=== PATIENT | female | born 1940 | race Caucasian/White ===

== ENCOUNTER 2016-12-31 08:38 | Outpatient (CLI) | payer MEDICARE, OTHER | END 2016-12-31 08:39 | disposition home or self-care (01) | DX: M85.89 Other specified disorders of bone density and structure, multiple sites (principal); E28.319 Asymptomatic premature menopause; M19.90 Unspecified osteoarthritis, unspecified site ==

== ENCOUNTER 2016-12-31 08:40 | Outpatient (CLI) | payer MEDICARE, OTHER | END 2016-12-31 08:41 | disposition home or self-care (01) | DX: Z12.2 Encounter for screening for malignant neoplasm of respiratory organs (principal); M85.89 Other specified disorders of bone density and structure, multiple sites; Z87.891 Personal history of nicotine dependence; E28.319 Asymptomatic premature menopause; M19.90 Unspecified osteoarthritis, unspecified site | CPT/HCPCS: 77080; G0297 ==

== ENCOUNTER 2016-12-31 08:42 | Outpatient (CLI) | payer MEDICARE, OTHER | END 2016-12-31 08:43 | disposition home or self-care (01) | DX: Z12.31 Encounter for screening mammogram for malignant neoplasm of breast (principal) ==

== ENCOUNTER 2018-03-23 09:48 | Outpatient (CLI) | payer MEDICARE, OTHER ==
[2018-03-23] MEDS ORDERED: IOPAMIDOL-300 100 ML VIAL ONE (10:11)
[2018-03-23] MEDS ORDERED: IOPAMIDOL-300 50 ML VIAL ONE (10:11)
--- NOTE | 2018-03-23 11:39 | CT Report ---
Procedure Date: 03/23/2018 Accession Number: [id number] / [id number] Procedure: CT - Abdomen/Pelvis W/ CPT Code: FULL RESULT: EXAM: Abdomen/Pelvis W/ DATE: 03/23/2018 11:17 AM CLINICAL HISTORY: ABDOMINAL PAIN COMPARISON: None. TECHNIQUE: Routine helical CT imaging was performed through the abdomen and pelvis. IV contrast: 100 mL of Isovue-300. Enteric contrast: Yes. Reconstructions: Coronal and sagittal. In accordance with CT protocol optimization, one or more of the following dose reduction techniques were utilized for this exam: automated exposure control, adjustment of mA and/or KV based on patient size, or use of iterative reconstructive technique. FINDINGS: Lung Bases: Unremarkable. Liver: Hepatic hypodensities which are too small to characterize. Gallbladder/Bile Ducts: Unremarkable. Spleen: Normal. Pancreas: Normal. Adrenal Glands: Normal. Kidneys: Normal. No masses or hydronephrosis. Peritoneal Cavity/Bowel: Normal. No free fluid, free air or adenopathy. No masses or acute inflammatory process. The appendix is not seen confidently, however there are no inflammatory changes in the right lower quadrant to suggest appendicitis/stump appendicitis. There is no bowel obstruction. Pelvic Organs: Normal. The bladder and visualized pelvic organs are within normal limits. Vasculature: No aneurysms or other significant abnormality. Bones: No significant abnormality. Other: None. IMPRESSION: Etiology of the patient's abdominal pain is not identified. RADIA
[2018-03-23] MEDS ORDERED: IOPAMIDOL-300 100 ML VIAL IVP ONE (12:02)
[2018-03-23] MEDS ORDERED: IOPAMIDOL-300 50 ML VIAL PO ONE (12:02)
== END 2018-03-23 09:49 | disposition home or self-care (01) ==
LOC: DI 09:48
PROVIDERS: ATTEND Physician Assistant
DX: R10.9 Unspecified abdominal pain (principal)
CPT/HCPCS: 74177; Q9967

== ENCOUNTER 2018-12-31 10:29 | Outpatient (CLI) | payer MEDICARE, OTHER ==
--- NOTE | 2019-01-01 15:25 | XRAY Report ---
Reason: PAIN IN LEFT THIGH LOW BACK PAIN Procedure Date: 12/31/2018 Accession Number: [id number] / [id number] Procedure: XR - Femur 2V LT CPT Code: FULL RESULT: EXAM: LEFT FEMUR RADIOGRAPHY EXAM DATE: 12/31/2018 10:58 AM. CLINICAL HISTORY: Left femur pain, mid shaft; no known injury. COMPARISON: None. TECHNIQUE: 2 views. FINDINGS: Bones: Normal. No fracture or bone lesion. Joints: Moderate joint space narrowing of the hip. No subluxation. Soft Tissues: Normal. No soft tissue swelling. IMPRESSION: Moderate degenerative disease of the hip. RADIA
--- NOTE | 2019-01-01 15:28 | XRAY Report ---
Reason: PAIN IN LEFT THIGH LOW BACK PAIN Procedure Date: 12/31/2018 Accession Number: [id number] / [id number] Procedure: XR - Lumbar Spine 2 View CPT Code: FULL RESULT: EXAM: LUMBOSACRAL SPINE RADIOGRAPHY EXAM DATE: 12/31/2018 10:58 AM. CLINICAL HISTORY: Complains of low back pain, no known injuries. COMPARISONS: None. TECHNIQUE: 3 views. FINDINGS: Alignment: Normal. No spondylolisthesis or scoliosis. Bones: Five nec-ujz-ecmvmtq lumbar vertebral bodies are present. The bones are qualitatively osteopenic; this limits evaluation for underlying fractures or masses. No fractures detected. Disks: Mild degenerative disk disease which is most pronounced at L4-L5. Facets: Moderate facet arthropathy predominantly at L4 and L5. Sacroiliac Joints: Unremarkable. Soft Tissues: Normal. The visualized bowel gas pattern is normal. IMPRESSION: Degenerative changes and osteopenia. RADIA
== END 2018-12-31 10:30 | disposition home or self-care (01) ==
LOC: DI 10:29
PROVIDERS: ATTEND Physician Assistant
DX: M16.12 Unilateral primary osteoarthritis, left hip (principal); M51.36 Other intervertebral disc degeneration, lumbar region; M47.9 Spondylosis, unspecified; M85.88 Other specified disorders of bone density and structure, other site
CPT/HCPCS: 72100

== ENCOUNTER 2020-12-08 14:00 | Outpatient (CLI) | payer MEDICARE, OTHER ==
[2020-12-08] MEDS ORDERED: IOPAMIDOL-300 50 ML VIAL ONE (14:04)
[2020-12-08] MEDS ORDERED: IOPAMIDOL-300 100 ML VIAL ONE (14:04)
[2020-12-08] MEDS ORDERED: IOPAMIDOL-300 100 ML VIAL IVP ONE (15:48)
--- NOTE | 2020-12-08 16:09 | CT Report ---
PROCEDURE: Abdomen/Pelvis W INDICATIONS: LLQ PAIN CONTRAST: IV CONTRAST: Isovue 300 ml: 100 PO CONTRAST: Isovue 300 ml50 TECHNIQUE: After the administration of IV contrast, 5 mm thick sections acquired from the diaphragms to the symp hysis. 5 mm thick coronal and sagittal reformats were acquired. For radiation dose reduction, the f ollowing was used: automated exposure control, adjustment of mA and/or kV according to patient size. COMPARISON: 03/23/2018. FINDINGS: Image quality: Excellent. ABDOMEN: Lung bases: Dependent atelectasis/scarring in posterior lateral periphery of bilateral lung bases are seen.. Heart size is normal. Solid organs: Liver and spleen are normal in size and enhancement. Gallbladder is within normal valentin its Biliary system is non dilated. Pancreas enhances normally. No adrenal nodules. Kidneys demons trate normal size and enhancement, without hydronephrosis. Peritoneum and bowel: Bowel loops demonstrate normal wall thickness and caliber. Appendix is not de finitively identified. No secondary CT signs of acute appendicitis. Mild fecal stasis in the colon is seen. Descending colon and sigmoid colon diverticulosis is seen. Questionable wall thickening and ed osei with pericolonic fat stranding involving mid sigmoid colon in left lower quadrant abdomen is seen concerning for diverticulitis in this area best seen on axial image 62 and coronal image 30. No absc ess collection. No free fluid of free air. Nodes and vessels: No retroperitoneal or mesenteric adenopathy by size criteria. Aorta and inferior vena cava are normal in size. Mild to moderate atherosclerotic disease is seen. Miscellaneous: No ventral hernias. PELVIS: Genitourinary: Bladder wall thickness is normal. Miscellaneous: No inguinal hernias or adenopathy. Bones: No suspicious bony lesions. No vertebral body compression fractures. Degenerative disc dise ase throughout lumbar spine is seen more prominent at L4-5 and L5-S1 levels. IMPRESSION: 1. Finding is suggestive of early acute diverticulitis involving mid sigmoid colon in left lower pelv is. No abscess collection. No signs of perforation. No free fluid of free air. 2. No bowel obstruction. No CT evidence of acute appendicitis. 3. Rest of the findings are unchanged from previous study. Reviewed by: Artemio Arnett MD on 12/08/2020 4:08 PM PDT Approved by: Artemio Arnett MD on 12/08/2020 4:08 PM PDT Station ID: [id number]
== END 2020-12-08 14:01 | disposition home or self-care (01) ==
LOC: DI 14:00
PROVIDERS: ATTEND Registered Nurse
DX: R10.32 Left lower quadrant pain (principal)
CPT/HCPCS: 74177; Q9967

== ENCOUNTER 2020-12-27 12:48 | Outpatient (CLI) | payer MEDICARE, OTHER ==
--- NOTE | 2020-12-28 12:05 | Mammography Report ---
BILATERAL DIGITAL SCREENING MAMMOGRAM 3D/2D: 12/27/2020 CLINICAL: Routine screening. Comparison is made to exams dated: 12/31/2016 mammogram and 08/02/2014 mammogram - [facility]. There are scattered fibroglandular elements in both breasts. No significant masses, calcifications, or other findings are seen in either breast. There has been no significant interval change. IMPRESSION: NEGATIVE There is no mammographic evidence of malignancy. A 1 year screening mammogram is recommended. This exam was interpreted at Station ID: [id number]. NOTE: For mammograms, a report in lay terms will be sent to the patient. Approximately 15% of breast malignancies will not be visualized mammographically. In the management of a palpable breast mass, a negative mammogram must not discourage biopsy of a clinically suspicious lesion. Electronically Signed By: Shelly salazar/penrad:12/27/2020 17:00:00 ACR BI-RADS Category 1: Negative 3341F PARENCHYMAL PATTERN: (A) - The breast(s) demonstrate(s) scattered fibroglandular densities. BI-RADS CATEGORY: (1) - 1 RECOMMENDATION: (ANNUAL) - Recommend routine annual screening mammography. [id number] 1 year screening LATERALITY: (B)
== END 2020-12-27 12:49 | disposition home or self-care (01) ==
LOC: DI.S 12:48
PROVIDERS: ATTEND Registered Nurse
DX: Z12.31 Encounter for screening mammogram for malignant neoplasm of breast (principal)

== ENCOUNTER 2021-08-09 08:00 | Outpatient (CLI) | payer MEDICARE, OTHER ==
--- NOTE | 2021-08-09 12:12 | XRAY Report ---
PROCEDURE: Ribs w/PA Chest RT INDICATIONS: RIB PAIN, RIGHT TECHNIQUE: 3 views of the right ribs were acquired, along with a single view chest. COMPARISON: None FINDINGS: Surgical changes and devices: None. Bones and chest wall: No fractures or dislocations. No suspicious bony lesions. Overlying soft tis sues appear unremarkable. Lungs and pleura: No pleural effusions or pneumothorax. Lungs appear clear. Mediastinum: Mediastinal contours appear normal. Heart size is normal. IMPRESSION: No evidence of displaced right rib fracture. No evidence of acute pulmonary process. Reviewed by: Osman Stern MD on 08/09/2021 12:11 PM PST Approved by: Osman Stern MD on 08/09/2021 12:11 PM PST Station ID: [id number]
== END 2021-08-09 23:59 | disposition home or self-care (01) ==
LOC: DI.S 08:00
PROVIDERS: ATTEND Physician Assistant
DX: R07.81 Pleurodynia (principal)

== ENCOUNTER 2021-09-14 09:50 | Outpatient (CLI) | payer MEDICARE, OTHER ==
--- NOTE | 2021-09-14 12:40 | DEXA Report ---
PROCEDURE: Dexa Spine and/or Hip INDICATIONS: POST MENOPAUSAL TECHNIQUE: Dual energy x-ray absorptiometry (DXA) was performed on a [employer] Mobile System. Regions measur ed are the AP Spine, femoral neck, and if needed forearm. COMPARISON: 12/31/2016. FINDINGS: Lumbar Spine: Bone Mineral Density 1.030 g/cm/cm,T score -1.3, not statistically changed since the most recent p rior study Left Hip: Bone Mineral Density 0.916 g/cm/cm,T score -0.7, statistically unchanged since most recent prior jasper dy Left Femoral Neck: Bone Mineral Density 0.902 g/cm/cm, T score -1.0, (T score greater or equal to -1.0: NORMAL) (T score from -1.1 to -2.4: OSTEOPENIA) (T score less than or equal to -2.5 to: OSTEOPOROSIS) Impression: Osteopenia. No statistically significant change since most recent prior study. Patients with diagnosis of osteoporosis or osteopenia should have regular bone mineral density assess ment. For those eligible for Medicare, routine testing is allowed once every 2 years. Testing frequ ency can be increased for patients who have rapidly progressing disease or for those who are receivin g medical therapy to restore bone mass. Reviewed by: Osman Stern MD on 09/14/2021 12:39 PM PST Approved by: Osman Stern MD on 09/14/2021 12:39 PM PST Station ID: [id number]
== END 2021-09-14 09:51 | disposition home or self-care (01) ==
LOC: DI 09:50
PROVIDERS: ATTEND Nurse Practitioner Family
DX: M85.89 Other specified disorders of bone density and structure, multiple sites (principal); Z78.0 Asymptomatic menopausal state

== ENCOUNTER 2021-09-18 12:20 | Outpatient (CLI) | payer MEDICARE, OTHER ==
--- NOTE | 2021-09-18 14:30 | CARDIAC PROCEDURE NOTE ---
Stress Test Report Service Date: 09/18/21 Service Time: 12:30 Ordering Provider: Malini Rm NP Indication for Test: Assess for inducible cardiac ischemia. Significant Medical History: Mary is referred for an ischemia evaluation regarding symptoms that include palpitations and "heart hurting". She has generally been quite healthy and remains active, walking regularly up to a mile at a time in her neighborhood, which includes some inclines. She reports palpitations occurring under three contexts: (mostly) nocturnal after arising to use the rest room and returning to bed (heart pounds intrusively); in response to suddenly having to markedly increase her activity level, such as dodging an oncoming vehicle while walking; as well as sometimes, randomly. She notes that at times under the second condition (unexpected marked exertion) there may be associated lightheadedness, but not under the other circumstances. She also has concern for intermittent "chest hurting", which feels like she was punched in the central chest area. This non-radiating sensation generally occurs randomly and can last for several minutes to nearly a day. There is sometimes a feeling of slight breathing restriction, though focus on deep breathing helps to alleviate the sensation. It is not associated with diaphoresis, nausea or marked shortness of breath, typically and the "hurting" only occurs with exertion when the latter is quite marked. Cardiac Risk Factors: Has history of hyperlipidemia (not treated), was a smoker but quit >40 yrs ago; she reports no hypertension (with home BP monitoring), no diabetes and no known coronary disease in close relatives. Notes both parents had irregular heart rhythms in later years, treated with digoxin). Type of Stress Test: ETT with Myocardial Perfusion Imaging Procedure: -Exercise Treadmill Test- After signing informed consent, the patient underwent resting 99Tc-Myoview SPECT imaging and then performed treadmill exercise using a Major protocol. The patient exercised for 8 minutes 5 seconds and achieved a peak heart rate of 130 (92 percent predicted maximum heart rate for age), and an estimated workload of 10.2 METS. The test was terminated due to fatigue/shortness of breath after achieving her target heart rate. Resting heart rate: 69 Peak heart rate: 130 Normal response to exercise. Resting BP: 150/88 Peak BP: 198/89 Mildly hypertensive at rest with physiologic systolic BP increase with exercise. Rhythm during exercise: Sinus rhythm throughout, with rare isolated premature ventricular complexes. Symptoms: After concluding exercise she reported experiencing her typical mild chest discomfort, with onset about one minute prior (i.e. 7 minutes). She denied awareness of palpitations. EKG at rest showed normal sinus rhythm, with early precordial R/S transition variant. EKG at peak stress showed ST depression of 0.5-0.[address] depression, borderline positive for ischemia. In Recovery heart rate rapidly and normally returned to baseline, while blood pressure came down more gradually towards normal (164/88 at 5 minutes). Nuclear imaging performed at rest and with stress and will be reported separately. Bala Anthony MD, was present throughout this treadmill stress study and supervised it in its entirety. Summary: 1) Exercise tolerance well above average for age, as evidenced by NGHIA of -51%. 2) Normal resting EKG. 3) Adequate level of exercise was achieved on this treadmill stress test. 4) BP mildly elevated at rest with physiologic increase with exercise. 5) Borderline ischemic changes by EKG criteria were seen at peak stress, in setting of mild chest discomfort. 6) Analysis of gated nuclear images reveals normal left ventricular size and systolic function; SPECT analysis reveals normal perfusion of the left ventricle at rest and following treadmill stress, thus no evidence of prior infarct or ind ucible ischemia. See separate report for more detail. CONCLUSIONS: 1) Mildly abnormal exercise treadmill stress study, given recreation of patient's chest discomfort and borderline ST depression. 2) Nuclear imaging is reassuringly normal, suggesting that borderline ischemic EKG changes are likely a false positive response. 3) Patient reports plan for ambulatory rhythm monitoring, which will be available at [facility] starting 10/30/21; given frequency of her symptoms, 7 days of monitoring would likely be sufficient. It may be reasonable for patient to have this study and defer Flight Paramedic referral, pending monitoring study results.
--- NOTE | 2021-09-18 17:48 | Nuclear Medicine Report ---
PROCEDURE: Rest and exercise myocardial perfusion SPECT with gated imaging and ejection fraction INDICATIONS: DYSPNEA ON EXERTION RADIOPHARMACEUTICAL: 10.27 mCi Tc-99m Myoview IV at rest and 34.1 mCi Tc-99m Myoview IV at peak exer cise. Iya-zpw-hdabaqol was performed. TECHNIQUE: Radiopharmaceutical was injected at peak stress test, and also at rest. SPECT images wer e obtained. SPECT myocardial perfusion images were displayed in short axis, horizontal long axis, an d vertical long axis views. Gated images were reviewed using Auto[employer] software. COMPARISON: None available. FINDINGS: Raw data: There is good myocardial labeling by radiotracer. No significant motion artifacts. Lung- to-heart ratio is 0.20 (normal is less than 0.46 for tetrafosmin tracer). Left ventricle function: Gated images demonstrate normal left ventricle wall thickening. No segment al wall motion abnormality. No transient ischemic dilation; TID is 0.76 (normal less than 1.30). Th e left ventricle resting end-diastolic volume is 53 mL. Left ventricle stress ejection fraction is 8 2%; normal values are above 45%. Myocardial perfusion: There is normal distribution of activity in the left and right ventricular socrates cardium. No fixed or reversible perfusion defects. IMPRESSION: 1. Normal myocardial perfusion study with no fixed or reversible perfusion defects. 2. Normal left ventricular function with no segmental wall motion abnormalities and normal stress LVE F of 82%. PQRS ATTESTATIONS: Measure 322 - Is this imaging test primarily performed on a low-risk surgery patient for preoperative evaluation within 30 days preceding their low-risk non-cardiac surgery? Low-risk surgery is defined as cardiac or myocardial infarction less than 1%, including (but not limited to) endoscopic pr ocedures, superficial procedures, cataract surgery, and excisional breast surgery: Answer: No Measure 323 - Is this imaging test performed primarily for the monitoring of an asymptomatic patient who had percutaneous coronary intervention on the visit date or within 2 years of the visit date? An swer: No Measure 324 - Is this imaging test performed primarily for the initial detection and risk assessment on an asymptomatic, low coronary heart disease patient? Low CHD risk definition = clinicians should consider the maximum number of available patient factors used to estimate risk based on [place] (A TP III criteria), typically age, gender, diabetes, smoking status, and use of blood pressure medicati on, and integrate age appropriate estimates for missing elements, such as LDL or standard blood press ure. Answer: No Reviewed by: Tiff Luu MD, PhD on 09/18/2021 4:47 PM RENY Approved by: Tiff Luu MD, PhD on 09/18/2021 4:47 PM [facility] Station ID: [id number]
== END 2021-09-18 12:21 | disposition home or self-care (01) ==
LOC: DI 12:20
PROVIDERS: ATTEND Nurse Practitioner Family
DX: R06.09 Other forms of dyspnea (principal); E78.5 Hyperlipidemia, unspecified; Z87.891 Personal history of nicotine dependence; R94.39 Abnormal result of other cardiovascular function study; R07.9 Chest pain, unspecified
CPT/HCPCS: 78452; 93016; 93017; 93018; A9500

== ENCOUNTER 2023-08-28 14:41 | Outpatient (CLI) | payer MEDICARE, OTHER ==
[2023-08-28 14:59] LABS: BASOPHILS % (AUTO) 0.2 %; EOSINOPHILS # (AUTO) 0.1 10^3/uL (0.0-0.7); EOSINOPHILS % (AUTO) 1.2 %; HCT - HEMATOCRIT 40.5 % (37.0-47.0); HGB - HEMOGLOBIN 13.4 g/dL (12.0-16.0); LYMPHOCYTES # (AUTO) 1.5 10^3/uL (1.5-3.5); LYMPHOCYTES % (AUTO) 24.1 %; MEAN CORPUSCULAR HEMOGLOBIN 31.4 pg (27.0-31.0); MEAN CORPUSCULAR HGB CONC 33.1 g/dL (32.0-36.0); MEAN CORPUSCULAR VOLUME 94.8 fL (81.0-99.0); MEAN PLATELET VOLUME 10.2 fL (7.9-10.8); MONOCYTES # (AUTO) 0.3 10^3/uL (0.0-1.0); MONOCYTES % (AUTO) 4.9 %; NEUTROPHILS # (AUTO) 4.2 10^3/uL (1.5-6.6); NEUTROPHILS % (AUTO) 69.3 %; PLT - PLATELET COUNT 346 10^3/uL (130-450); RED BLOOD COUNT 4.27 10^6/uL (4.20-5.40); RED CELL DISTRIBUTION WIDTH 12.4 % (12.0-15.0); WHITE BLOOD COUNT 6.1 x10^3/uL (4.8-10.8)
[2023-08-28 15:01] LABS: CALCIUM, IONIZED 1.21 mmol/L (1.15-1.33); VBG PH 7.388 (7.31-7.41)
[2023-08-28 15:16] LABS: ALBUMIN 4.3 g/dL (3.2-5.5); ALBUMIN/GLOBULIN RATIO 2.3 (1.0-2.2); BILIRUBIN,TOTAL 0.3 mg/dL (0.2-1.0); CALCIUM 9.7 mg/dL (8.5-10.3); CREATININE 0.5 mg/dL (0.6-1.3); POTASSIUM 3.8 mmol/L (3.5-4.5); TOTAL PROTEIN 6.2 g/dL (6.4-8.9)
[2023-08-28 15:32] LABS: FERRITIN 39.6 ng/mL (11.0-306.8)
== END 2023-08-28 14:42 | disposition home or self-care (01) ==
LOC: LAB 14:41
PROVIDERS: ATTEND Internal Medicine
DX: R53.81 Other malaise (principal); R53.83 Other fatigue; E55.9 Vitamin D deficiency, unspecified; M81.0 Age-related osteoporosis without current pathological fracture
CPT/HCPCS: 36415; 80053; 82306; 82330; 82728; 83540; 84466; 85025

== ENCOUNTER 2023-10-30 11:11 | Outpatient (CLI) | payer MEDICARE, OTHER ==
--- NOTE | 2023-10-30 12:00 | Sleep Patient Instructions ---
Sleep Center Visit Summary - Patient Visit Information Reason for Visit: Initial consult for evaluation of sleep disordered breathing and other sleep issues. - Patient Instructions Instructions Attached: Sleep Study Additional Instructions: You will be completing a sleep study, either an in-lab polysomnography (PSG) or home sleep study (HST). You will follow-up in the sleep care office after the sleep study is completed to hear the results and talk about therapy, if needed. You will be called by our office staff to schedule this appointment, but you may contact us with any questions. - Clinic Information Contact: [facility] [address] [place] [address] [email or web address] T: [phone]
--- NOTE | 2023-10-30 12:09 | SLEEP CARE CONSULTATION ---
Information from patient questionnaire entered by Roxana Matthews. I have reviewed and concur with the information entered by Roxana Matthews. This document represents the service I personally performed and the decisions made by me, Laurel Calvillo ARNP. History of Present Illness Service Date and Time: 10/30/2023 1111 Reason for Visit: New patient Chief Complaint: reports: Fatigue, Frequent awakenings at night Date of Onset: MORE THAN A DECADE Usual bedtime: 10-1030PM Time it takes to fall asleep: 30-60MINS Snores at night: Yes ( calls it "fluffing") Observed to quit breathing while asleep: No Sleeps alone due to snoring: No Number of times waking at night: 2-4 Reasons for waking at night: reports: Gasping for air (once with a nightmare), Bathroom, Other (NOISE, SNORING, NIGHT ROSEN). denies: Choking, Snoring Toss, Turn, or Twitch while sleeping: Yes Recalls having dreams: Yes (having nightmares regularly) Usually gets out of bed at: 7-10AM Feels refreshed in the morning: No Morning headache: Yes (1-2 times a week; resolves in 1-2 HRS without meds) Sleepy or fatigued during the day: Yes Ever fallen asleep while driving: No Takes day naps: Yes (almost daily) Dreams during day naps: Yes Prior sleep studies: No Additional HPI information: I had the pleasure of seeing BEATRICE DUNLAP today regarding the possibility of her having a sleep disorder. Her current complaints are fatigue and frequent night awakenings. She says she has daytime fatigue and nightmares 3-4 times a week. She says she had nightmares as a child and then during a period of time where she was drinking "heavily" she did not have any nightmares. Once she stopped drinking, her nightmares have resumed. She can fall asleep within 30-60 minutes. She will wake up 2-4 times after going to sleep and sometimes cannot return to sleep if it is later in the morning like 4-5 AM. She is not always feeling refreshed in the morning. She naps when her sleeps daily for 3-4 hours but she is not sleeping that whole time herself. She is the sole caregiver of her 91 year old who has the beginnings of mental challenges. She says it is very stressful and she is dealing with depression. - Parasomnia Symptoms Ever been unable to move upon waking from sleep: No Walks in sleep: No Talks in sleep: Yes Ever acted out dreams in sleep: Yes (has dreams of dying) Ever felt weak in the knees when startled or emotional: No Bothered by creepy, crawly, restless sensations in legs: No Problems with memory or concentration: Yes (some memory from aging) Subjective Initial [place] Sleepiness Scale score: 6 (10/10/23) Past Medical History Past Medical History: reports: Arthritis, Gout, Anxiety, Depression, GERD, Atte ntion deficit Social History The patient's occupation is a RE. Patient is and lives in . Have you smoked in the past 12 months: No Cigarettes per day (20/pack): 50 Years of smokin Quit date: 1981 Smoking Pack Years: 50.0 Alcohol use: No Alcohol amount and frequency: TOO MUCH IN PAST STOPPED IN 1984 Caffeine use: No Family History Family history of sleep disordered breathing: Yes Family Hx Sleep Apnea: Father: Snoring Allergies and Home Medications Known drug allergies: Yes ( LISTED ) Drug allergies reviewed: Yes Home medication list reviewed: Yes (as listed) Allergy and home medication list: Allergies codeine Allergy (Intermediate, Verified 10/28/23 13:22) Nausea ANTIBIOTICS Allergy (Intermediate, Uncoded 10/28/23 13:22) Nausea Home Medications Medication Instructions Recorded Confirmed Last Taken Type Multi-Day Plus Minerals Tablet See Rx Instructions .ROUTE .COMPLEX 10/30/23 10/30/23 Unknown History Vitamin C See Rx Instructions .ROUTE .COMPLEX 10/30/23 10/30/23 Unknown History Review of Systems Weight gain over past 5 years: 15 Cardiovascular: reports: irregular heart rate or pulse. denies: high blood pressure Respiratory: reports: chronic cough Gastrointestinal: reports: nausea. denies: heartburn Neurological: denies: headaches Psychiatric: reports: Attention Deficit Hyperactivity, anxiety, depression Ear/Nose/Throat: reports: nose bleeds, dry mouth/throat, wisdom teeth removed. denies: tonsillectomy Endocrine: reports: sluggishness Musculoskeletal: reports: joint pain, neck pain, back pain Immunologic: reports: allergies to food or environment (nightshade plants) Physical Exam Vital signs obtained and entered by: LAUREL DOS SANTOS Blood Pressure: 129/86 Cuff size: regular (left) Heart Rate: 78 O2 Saturation: 100 Height: 5 ft 1 in Weight: 149 lb 9.6 oz Body Mass Index: 28.3 BMI Classification: Overweight Neck circumference: 14.25 (inches) Mouth and throat: narrow oropharynx Soft palate: long Hard palate: normal Uvula: normal Uvula visualization: 25% Mallampati Class III Tongue: normal in size Tonsils: small Neck: normal w/o lymphadenopathy or thyromegaly Heart: regular rate and rhythm Lungs: clear bilaterally Impression and Plan 1. Suspected Obstructive Sleep Apnea-Hypopnea Syndrome, as suggested by a history of irregular snoring, morning headache, frequent awakening during the night, unrefreshed sleep and cognitive impairment. Narrow oropharynx and obesity are common predisposing factors for obstructive sleep apnea-hypopnea syndrome. I recommend proceeding to polysomnography to confirm the diagnosis and to assess severity. If the patient has significant sleep disordered breathing, a manual CPAP titration study will also be performed to find the optimal treatment pressure. I informed the patient of what the sleep studies involve and after some discussion, obtained agreement to proceed. The pathophysiology of obstructive sleep apnea-hypopnea syndrome was discussed with the patient and health risks of cardiovascular and cerebrovascular disease if not treated. Risks of drowsy driving discussed in detail and patient advised to avoid long distance driving and to basting puller at the first sign of drowsiness. Patient agreed to plan. * Schedule polysomnography +- manual CPAP titration study and return in 1-2 weeks after the study to discuss result and initiate therapy. * Avoid long distance driving or driving when feeling sleepy. * Avoid alcohol, sedative and muscle relaxant around bedtime. * Attempt to lose weight. * Review instructions provided by trained office staff on how to prepare for the sleep study. * Return for follow-up after sleep study completed. Counseling Topics: Weight loss health impact Follow up with Sleep Care in: other (after sleep study resulted) Plan: PSG Visit Type: In Office Time Spent with Patient (minutes): 40 Provider Statement: I spent 100% of the Face to Face Visit with the patient with greater than 50% spent counseling the patient and coordination of care.
[2023-10-30 12:12] VITALS: BP 129/86; O2SAT 100
== END 2023-10-30 11:12 | disposition home or self-care (01) ==
LOC: SC 11:11
PROVIDERS: ATTEND Nurse Practitioner Family
DX: G47.8 Other sleep disorders (principal); R41.89 Other symptoms and signs involving cognitive functions and awareness; R06.83 Snoring; R51.9 Headache, unspecified
CPT/HCPCS: 99203; G0463; 99212